=== PATIENT | female | born 1980 | race Caucasian/White ===

== ENCOUNTER → 2021-03-10 | Outpatient (CLI) | payer OTHER | LOC: MAMO 14:03 | DX: Z12.31 Encounter for screening mammogram for malignant neoplasm of breast (principal) | CPT/HCPCS: 77063; 77067 ==

== ENCOUNTER 2021-03-30 16:55 | Emergency (ER) | payer OTHER ==
[2021-03-30 20:19] LABS: HEMOGLOBIN 13.2 gm/dl (12.3-15.3); RED BLOOD COUNT 4.43 M/UL (4.00-5.10); WHITE BLOOD COUNT 6.1 K/UL (4.5-11.0)
[2021-03-30 20:49] LABS: BUN/CREATININE RATIO 8 (0-10)
[2021-03-30] MEDS ORDERED: IBUPROFEN600 MG PO (21:30)
[2021-03-30] MEDS ORDERED: CYCLOBENZAPRINE10 MG PO (21:31)
== END 2021-03-30 21:52 | disposition home or self-care (01) ==
LOC: ER1 16:55
PROVIDERS: Nurse Practitioner
DX: M54.50 Low back pain, unspecified (principal); Z88.0 Allergy status to penicillin; Z88.2 Allergy status to sulfonamides
CPT/HCPCS: 72128; 72131; 80053; 81001; 85025; 99284

== ENCOUNTER 2021-04-03 01:26 | Emergency (ER) | payer OTHER ==
[~2021-04-03 01:26] MED LIST: CYCLOBENZAPRINE10 MG PO; IBUPROFEN600 MG PO
[2021-04-03] MEDS ORDERED: VISTARIL 50 MG50 MG PO (03:24)
[2021-04-04] MEDS ORDERED: MEDROL DOSEPAK 24 MG PO (08:36)
== END 2021-04-03 03:29 | disposition home or self-care (01) ==
LOC: ER1 01:26
DX: F41.9 Anxiety disorder, unspecified (principal); Z88.0 Allergy status to penicillin; Z88.2 Allergy status to sulfonamides; Z79.899 Other long term (current) drug therapy
CPT/HCPCS: 84439; 84443; 99283; Q0177

== ENCOUNTER 2021-04-04 06:33 | Emergency (ER) | payer OTHER ==
[~2021-04-04 06:33] MED LIST changes: +VISTARIL 50 MG50 MG PO
[2021-04-04] MEDS ORDERED: MEDROL DOSEPAK 24 MG PO (08:36)
== END 2021-04-04 08:48 | disposition home or self-care (01) ==
LOC: ER1 06:33
DX: M54.6 Pain in thoracic spine (principal); R10.30 Lower abdominal pain, unspecified; Z88.0 Allergy status to penicillin; Z88.2 Allergy status to sulfonamides
CPT/HCPCS: 96372; 99283; J1100; J1885

== ENCOUNTER 2021-08-24 20:44 | Emergency (ER) | payer OTHER ==
[~2021-08-24 20:44] MED LIST changes: +MEDROL DOSEPAK 24 MG PO
[2021-08-24 21:59] LABS: HEMOGLOBIN 13.9 gm/dl (12.3-15.3); RED BLOOD COUNT 4.59 M/UL (4.00-5.10); WHITE BLOOD COUNT 5.5 K/UL (4.5-11.0)
[2021-08-24 22:17] LABS: BUN/CREATININE RATIO 9 (0-10)
== END 2021-08-24 23:40 | disposition home or self-care (01) ==
LOC: ER1 20:44
PROVIDERS: Physician Assistant Medical
DX: R10.31 Right lower quadrant pain (principal); R11.2 Nausea with vomiting, unspecified; Z88.2 Allergy status to sulfonamides; Z88.0 Allergy status to penicillin
CPT/HCPCS: 80053; 81001; 83605; 83690; 84703; 85025; 85610; 99284; J1885; Q9967